=== PATIENT | female | born 1970 | race Caucasian/White ===

== ENCOUNTER 2017-04-03 16:05 | Emergency (ER) | payer MEDICAID ==
[~2017-04-03] VITALS: Ht 170.2 cm; Wt 83.9 kg
[~2017-04-03 16:05] MED LIST: ALBU8.5H IH; ARIP30TA10 PO; CETI-176 PO; FLU30SYR8 IM ONLY; FLU60SYR30 IM ONLY; FLUT1DIS29 IH; IPRA3AMP21 IH; NAPR-724 PO; NIC10R INH; NICO1PAT86 TD; NICO4LOZ35 BC; TIO18R INH; TRAZ-156 PO; TRAZ-163 PO; VENL37.594 PO
--- NOTE | 2017-04-03 16:18 | ER Report ---
History and Physical Time Seen By MD: 16:17 HPI/ROS CHIEF COMPLAINT: Fall with left knee pain HISTORY OF PRESENT ILLNESS: 47-year-old female patient presents to emergency room with complaint of a fall with left knee pain. Patient states that she was going outside with her dog to let him go the bathroom. She essentially outside dog pulled her and pulled her down the steps. She states that she is unsure how she hurt her knee but states that her left knee is having significant amounts of pain. States she is not able to put any weight on her knee. She denies having any numbness or tingling to her foot. She states that she has not taken any medication for this. Patient states that she was wearing a knee brace and this happened. She states that it is a hinged knee brace with rods going down either side of the knee. She states that she has a history of knee pain. States that she has seen a chronic pain specialist for this in the past. Patient states that she is not able to bear any weight on that leg. REVIEW OF SYSTEMS: Respiratory: No cough, no dyspnea. Cardiovascular: No chest pain, no palpitations. Gastrointestinal: No vomiting, no abdominal pain. Musculoskeletal: As noted above Allergies: Coded Allergies: No Known Drug Allergies (Unverified , 04/03/17) Home Meds Active Scripts Oxycodone Hcl/Acetaminophen (PERCOCET 5-325 MG TABLET) 1 Each Tablet, 1 EACH PO Q4-6H Y for PAIN, #20 TAB Prov:BRENNA SANCHEZSSGarrick CHAUDHRY 04/03/17 Albuterol Sulfate 90 Mcg/Act (PROAIR HFA 90 MCG/ACT) 8.5 Gm Hfa.aer.ad, 1-2 PUFF IH 3-4XD, #3 INHALER 3 Refills Prov:TEDDY GREEN MD 03/21/17 Nicotine Polacrilex (NICOTINE LOZENGE) 4 Mg Lozenge, 4 MG BC Q1H, #500 LOZENGE 2 Refills Take 1 lozenge every hour for 6 weeks , then 1 every 2 hours for 3 weeks, then 1 every 4 hours for 3 weeks. Prov:TEDDY GREEN MD 12/20/16 Cetirizine Hcl (ZYRTEC) 10 Mg Tablet, 1 TAB PO QDAY, #90 TAB 3 Refills Prov:TEDDY GREEN MD 12/20/16 Naproxen (NAPROXEN) 500 Mg Tablet, 1 TAB PO BID, #180 TAB 3 Refills Prov:TEDDY GREEN MD 12/20/16 Fluticasone/Salmeterol (ADVAIR 500-50 DISKUS) 1 Each Disk.w.dev, 1 EACH IH BID, #3 DISK 3 Refills Prov:TEDDY GREEN MD 12/20/16 Tiotropium [place] (SPIRIVA) 18 Mcg/Cap Inh, 1 CAP INH DAILY, #3 INH 3 Refills Prov:TEDDY GREEN MD 12/20/16 Reported Medications Venlafaxine Hcl (EFFEXOR XR) 37.5 Mg Cap.er.24h, 1 CAP PO QDAY 12/26/16 Trazodone Hcl (TRAZODONE HCL) 100 Mg Tablet, 1 TAB PO QHS, TAB 12/26/16 Aripiprazole (ABILIFY) 30 Mg Tablet, 1 TAB PO QDAY, TAB 09/20/16 Ipratropium/Albuterol Sulfate (IPRAT-ALBUT 0.5-3(2.5) MG/3 ML) 3 Ml Ampul.neb, 3 ML IH PRN 09/20/16 Discontinued Scripts Trazodone Hcl (TRAZODONE HCL) 50 Mg Tablet, 50 MG PO DAILY, #30 TAB 11 Refills Prov:TEDDY GREEN MD 12/26/16 Past Medical/Surgical History Patient has a past medical history of migraines, COPD, knee problems, bipolar, schizophrenic, multiple personality disorder, suicide attempt. Patient has surgical history of left wrist surgery, oophorectomy. Reviewed Nurses Notes: Yes Smoking Status: Current: Every Day Smoker Constitutional Vital Sign - Last 24 Hours 04/03/17 04/03/17 04/03/17 04/03/17 16:14 16:14 16:20 16:30 Temp 98.4 Pulse 105 98 Resp 20 B/P (MAP) 119/87 119/87 (98) 113/85 (94) Pulse Ox 95 94 O2 Delivery Room Air 04/03/17 04/03/17 04/03/17 04/03/17 16:35 16:50 17:00 17:05 Pulse 99 97 B/P (MAP) 113/85 (94) Pulse Ox 94 92 92 04/03/17 04/03/17 04/03/17 04/03/17 17:20 17:30 17:35 17:50 Pulse 113 100 97 B/P (MAP) 109/72 (84) Pulse Ox 94 94 94 Physical Exam General Appearance: The patient is alert, has no immediate need for airway protection and no current signs of toxicity. ENT: Tympanic membranes are pearly-perales, auditory canals are patent, mucous membranes are moist. Respiratory: Chest is non tender, lungs are clear to auscultation. Cardiac: regular rate and rhythm Gastrointestinal: Abdomen is soft and non tender, no masses, bowel sounds normal. Musculoskeletal: Neck: Neck is supple and non tender. Extremities have full range of motion and are non tender. Patient has tenderness to the left knee, there is some mild swelling, no bruising. Patient has tenderness to the lateral aspect of the knee. Skin: No rashes or lesions. DIFFERENTIAL DIAGNOSIS: After history and physical exam differential diagnosis was considered for knee contusion, knee fracture, flareup of chronic pain. Medical Decision Making EKG/Imaging Imaging KNEE LEFT W/O CONTRAST HISTORY: Tibial plateau fracture. Knee pain. ADDITIONAL HISTORY: None. TECHNIQUE: CT images were obtained through the left knee without intravenous contrast. 2D coronal and sagittal images obtained from the initial data. One of the following dose optimization techniques was utilized in the performance of this exam: automated exposure control; adjustment of the mA and/or kv according to patient size; or use of iterative reconstruction technique. Specific details can be referenced in the facility's radiology CT exam operational policy. CONTRAST: None COMPARISON: X-ray 04/03/2017 FINDINGS: Knee: Comminuted, intra-articular tibial plateau fracture with intra-articular fracture planes extending predominantly medially with some extension centrally and laterally. 3 mm fracture gap at the lateral tibial articular surface. 2-3 mm of anterior depression at the medial tibial plateau. Nondisplaced fracture the fibular head. No significant degenerative changes. No evidence of AVN. Lipohemarthrosis noted. No loose body. Soft tissues: Soft tissue hematoma posteriorly at the knee and posterior thigh. Other findings: None significant IMPRESSION: 1. Comminuted, intra-articular tibial plateau fracture with 3 mm fracture gap at the lateral tibial articular surface and 2-3 mm of anterior compression at the medial tibial plateau. 2. Nondisplaced fracture the fibular head. 3. Lipohemarthrosis. Report Dictated By: Ata Skinner MD at 04/03/2017 6:34 PM Report E-Signed By: Ata Skinner MD at 04/03/2017 6:39 PM KNEE 4 VIEW LEFT HISTORY: Injury. Pain. COMPARISON: None FINDINGS: Left knee: Comminuted, intra-articular tibial plateau fracture extending into the central-lateral tibial plateau. Approximately 3 mm of depression. Nondisplaced fracture of the fibular head. No evidence of AVN. Lipohemarthrosis noted. No loose body. IMPRESSION: 1. Comminuted, intra-articular tibial plateau fracture with approximately 3 mm of depression. Recommend CT for further evaluation. 2. Nondisplaced fracture the fibular head. 3. Lipohemarthrosis. Report Dictated By: Ata Skinner MD at 04/03/2017 5:09 PM Report E-Signed By: Ata Skinner MD at 04/03/2017 5:11 PM ED Course/Re-evaluation ED Course Patient was admitted to exam room, history and physical were obtained. Differential diagnoses were considered. On examination patient has significant amount of pain to the left knee. An x-ray was done of the left knee which showed a tibial plateau fracture as well as a fracture of the fibular head. I discussed the case with Dr. Presley, orthopedist, who recommended getting a CT scan for better evaluation. CT scan of the knee was done which showed 3 mm separation as well as 2-3 mm depression. I again spoke with Dr. velasoc. He recommended following up in the clinic. We'll go ahead and discharge patient home with a prescription of Percocet. She is with knee immobilizer unless she is showering. She is to follow-up with [facility], she is to call tomorrow to make an appointment. I discussed this with the patient and her and they verbalized understanding and agreement with plan. Decision to Disposition Date: Apr 03, 2017 Decision to Disposition Time: 18:58 Depart Departure Latest Vital Signs Vital Signs Date Time Temp Pulse Resp B/P (MAP) Pulse Ox O2 Delivery O2 Flow Rate FiO2 04/03/17 17:50 97 94 04/03/17 17:30 109/72 (84) 04/03/17 16:14 98.4 20 Room Air Impression: Primary Impression: Tibial plateau fracture, left Condition: Improved Disposition: HOME OR SELF-CARE Referrals: TEDDY GREEN MD (PCP) NALINI PRESLEY MD New Scripts Oxycodone Hcl/Acetaminophen (PERCOCET 5-325 MG TABLET) 1 Each Tablet 1 EACH PO Q4-6H Y for PAIN, #20 TAB Prov: JOSE SANCHEZ 04/03/17 Patient Instructions: Leg Fracture (ED) Additional Instructions: Limit activity by pain. Ice the knee 2-3 times a day for 20-30 minutes. Follow up with [facility], call tomorrow to make an appointment. Return to the ER with uncontrollable pain or numbness to the lower leg or foot. You may take Ibuprofen as needed for pain in addition to the pain medication. Don't take any additional Tylenol while on the pain medication. Please be nonweightbearing to the left leg. You may take the brace off to shower. Problem Qualifiers Primary Impression: Tibial plateau fracture, left Encounter type: initial encounter Fracture type: closed Qualified Codes: S82.142A - Displaced bicondylar fracture of left tibia, initial encounter for closed fracture JOSE SANCHEZ Apr 03, 2017 16:18
--- NOTE | 2017-04-03 17:16 | RADIOLOGY IMAGING REPORT ---
FACILITY: [facility] - [place] PATIENT NAME: Giovanna Alexandra : 1970 MR: [id number] V: [id number] EXAM DATE: ORDERING PHYSICIAN: JOSE SANCHEZ TECHNOLOGIST: Location: [facility] - [place], [place] Patient: Giovanna Alexandra : 1970 Visit/Account:[id number] Date of Sevice: 04/03/2017 KNEE 4 VIEW LEFT HISTORY: Injury. Pain. COMPARISON: None FINDINGS: Left knee: Comminuted, intra-articular tibial plateau fracture extending into the central-lateral tib ial plateau. Approximately 3 mm of depression. Nondisplaced fracture of the fibular head. No evidence of AVN. Lipohemarthrosis noted. No loose body. IMPRESSION: 1. Comminuted, intra-articular tibial plateau fracture with approximately 3 mm of depression. Recomme nd CT for further evaluation. 2. Nondisplaced fracture the fibular head. 3. Lipohemarthrosis. Report Dictated By: Ata Skinner MD at 04/03/2017 5:09 PM Report E-Signed By: Ata Skinner MD at 04/03/2017 5:11 PM WSN:[id number]
[2017-04-03 18:30] VITALS: BP 115/85
--- NOTE | 2017-04-03 18:43 | RADIOLOGY IMAGING REPORT ---
[place] [facility] [place] NAME: Giovanna Alexandra : 1970 MR: [id number] V: [id number] EXAM DATE: ORDERING PHYSICIAN: JOSE SANCHEZ TECHNOLOGIST: Location: [place] [facility] - [place] Patient: Giovanna Alexandra : 1970 Visit/Account:[id number] Date of Sevice: 04/03/2017 KNEE LEFT W/O CONTRAST HISTORY: Tibial plateau fracture. Knee pain. ADDITIONAL HISTORY: None. TECHNIQUE: CT images were obtained through the left knee without intravenous contrast. 2D coronal an d sagittal images obtained from the initial data. One of the following dose optimization techniques w as utilized in the performance of this exam: automated exposure control; adjustment of the mA and/or kv according to patient size; or use of iterative reconstruction technique. Specific details can be r eferenced in the facility's radiology CT exam operational policy. CONTRAST: None COMPARISON: X-ray 04/03/2017 FINDINGS: Knee: Comminuted, intra-articular tibial plateau fracture with intra-articular fracture planes extend ing predominantly medially with some extension centrally and laterally. 3 mm fracture gap at the late ral tibial articular surface. 2-3 mm of anterior depression at the medial tibial plateau. Nondisplace d fracture the fibular head. No significant degenerative changes. No evidence of AVN. Lipohemarthrosi s noted. No loose body. Soft tissues: Soft tissue hematoma posteriorly at the knee and posterior thigh. Other findings: None significant IMPRESSION: 1. Comminuted, intra-articular tibial plateau fracture with 3 mm fracture gap at the lateral tibial a rticular surface and 2-3 mm of anterior compression at the medial tibial plateau. 2. Nondisplaced fracture the fibular head. 3. Lipohemarthrosis. Report Dictated By: Ata Skinner MD at 04/03/2017 6:34 PM Report E-Signed By: Ata Skinner MD at 04/03/2017 6:39 PM WSN:[id number]
[2017-04-03] MEDS ORDERED: OXYC-865 PO (18:55)
== END 2017-04-03 19:18 | disposition home or self-care (01) ==
LOC: ER 16:10
DX: S82.142A Displaced bicondylar fracture of left tibia, initial encounter for closed fracture (principal); W18.30XA Fall on same level, unspecified, initial encounter
CPT/HCPCS: 73564; 73700; 99283; L1830

== ENCOUNTER → 2017-04-12 | Outpatient (CLI) | payer MEDICAID ==
[~2017-04-12] MED LIST changes: +OXYC-865 PO
--- NOTE | 2017-04-12 17:38 | RADIOLOGY IMAGING REPORT ---
FACILITY: [facility] PATIENT NAME: Giovanna Alexandra : 1970 MR: [id number] V: [id number] EXAM DATE: ORDERING PHYSICIAN: NALINI PRESLEY TECHNOLOGIST: Location: [place] [facility] - [place] Patient: Giovanna Alexandra : 1970 Visit/Account:[id number] Date of Sevice: 04/12/2017 Exam type: VENOUS DOPP LOW LEFT EXTREMITY History: Fractured knee April 03, 2017 swelling and calf pain Comparison: None. Findings: The lower extremity veins were imaged including the left common femoral vein greater saphenous vein, superficial femoral vein, popliteal vein, peroneal vein, posterior tibial vein and anterior tibial ve in revealing no evidence of intraluminal thrombi. Incidentally noted is a 4.4 x 1.2 cm hypoechoic co llection in the popliteal fossa which may represent a hematoma or possibly a Mcrae's cyst IMPRESSION: 1. No sonographic evidence DVT involving the left lower extremity veins 4.4 x 1.2 cm collection left popliteal fossa possibly representing a hematoma or popliteal cyst Results were called to NALINI PRESLEY at 04/12/2017 5:34 PM. Report Dictated By: Blanca Moreira MD at 04/12/2017 5:30 PM Report E-Signed By: Blanca Moreira MD at 04/12/2017 5:34 PM WSN:[id number]
== END ==
LOC: US 16:10
PROVIDERS: ATTEND Orthopaedic Surgery Hand Surgery
DX: M71.22 Synovial cyst of popliteal space [Baker], left knee (principal)